=== PATIENT | male | born 1975 | race Caucasian/White ===

== ENCOUNTER 2023-01-21 10:56 | Outpatient (OUT) | payer BC, SELFPAY ==
[2023-01-21 12:04] LABS: Basophils Percent Auto 0.7 % (0.2-2.0); Eosinophils Absolute Auto 0.1 10^3/uL (0.0-0.7); Eosinophils Percent Auto 1.9 % (0.9-7.0); Hematocrit 45.2 % (42.0-54.0); Hemoglobin 14.8 g/dL (14.0-18.0); Immature Granulocytes Abs Auto 0.04 10^3/uL (0.00-0.03); Immature Granulocytes Pct Auto 0.7 % (0.0-0.5); Lymphocytes Absolute Auto 1.9 10^3/uL (1.2-3.8); Lymphocytes Percent Auto 33.8 % (20.5-60.0); Mean Corpuscular HGB Conc 32.7 g/dL (29.9-35.2); Mean Corpuscular Hemoglobin 28.4 pg (25.9-34.0); Mean Corpuscular Volume 86.6 fL (80.0-94.0); Mean Platelet Volume 9.7 fL (9.5-13.5); Monocytes Absolute Auto 0.6 10^3/uL (0.3-0.8); Monocytes Percent Auto 9.9 % (1.7-12.0); Platelet Count 296 10^3/uL (150-450); Red Blood Count 5.22 10^6/uL (4.70-6.10); Red Cell Distribution Width 13.6 % (11.0-15.0); White Blood Count 5.7 10^3/uL (4.0-11.0)
[2023-01-21 12:54] LABS: Alanine Aminotransferase 47 U/L (16-63); Albumin Level 3.8 g/dL (3.4-5.0); Alkaline Phosphatase 63 U/L (46-116); Anion Gap 10.1; Aspartate Amino Transferase 31 U/L (15-37); BUN Creatinine Ratio 10.3; Bilirubin Total 0.7 mg/dL (0.2-1.0); Calcium 8.7 mg/dL (8.5-10.1); Carbon Dioxide 27.9 mmol/L (21.0-32.0); Chloride 102 mmol/L (98-107); Cholesterol 217 mg/dL (<=200); Estimated GFR (African America >60 (>=60); Estimated GFR (Non-African Ame >60 (>=60); Free T3 2.46 pg/mL (2.18-3.98); Globulin 3.8 g/dL; Glucose 94 mg/dL (74-106); HDL Cholesterol 54 mg/dL (40-60); Sodium 136 mmol/L (136-145); Thyroid Stimulating Hormone 1.754 uIU/mL (0.358-3.740); Total Protein 7.6 g/dL (6.4-8.2); Triglycerides 48 mg/dL (<=150); VLDL CHOLESTEROL 9.6 mg/dL
[2023-01-21 12:57] LABS: Estimated Average Glucose 100 mg/dL; Glycohemoglobin A1C 5.1 % (4.5-6.2)
[2023-01-21 13:06] LABS: Prostate Specific Antigen Scrn 0.82 ng/mL (<=4.00)
== END 2023-01-21 10:57 | disposition home or self-care (01) ==
LOC: LAB 11:05
PROVIDERS: PCP Nurse Practitioner Family; Visit Provider Nurse Practitioner Family
DX: Z00.00 Encounter for general adult medical examination without abnormal findings (principal); Z12.5 Encounter for screening for malignant neoplasm of prostate
CPT/HCPCS: 36415; 80053; 80061; 83036; 83525; 84436; 84443; 84481; 85025; G0103

== ENCOUNTER 2023-01-28 13:43 | Outpatient (OUT) | payer BC, SELFPAY ==
--- NOTE | 2023-01-28 13:54 | US_ITS ---
[place] [id number] Patient Name: JAYLON ORTEGA MRN: [id number] date: 1975 Sex: M Assigned Patient Location: US Current Patient Location: Accession/Order Number: [id number] Exam Date: 01/28/2023 14:00 Report Date: 01/31/2023 06:47 At the request of: WARREN OMER Procedure: US venous doppler LE RT EXAMINATION: US venous doppler LE RT HISTORY: Pain In Right Lower Extremity M79.661 COMPARISON: No relevant comparison available. FINDINGS: REGION: Right lower extremity THROMBI: None. COMPRESSIBILITY: Normal compressibility. FLOW: Normal waveform and antegrade flow between 5 and 20 cm/s. OTHER: None. US/US venous doppler LE RT IMPRESSION: 1. No deep vein thrombus within right lower extremity. Electronically authenticated by: HECTOR BELLAMY Date: 01/31/2023 06:47
== END 2023-01-28 13:44 | disposition home or self-care (01) ==
PROVIDERS: PCP Nurse Practitioner Family; Visit Provider Nurse Practitioner Family
DX: M79.661 Pain in right lower leg (principal); M79.89 Other specified soft tissue disorders
CPT/HCPCS: 93971

== ENCOUNTER 2025-02-13 11:03 | Outpatient (OUT) | payer BC, SELFPAY ==
--- OUTSIDE RECORDS SUMMARY | 2025-02-13 11:15 | XMS_ITS | Clinical Summary ---
Author Organization [facility] Address [address] [place] [address] Care Team Providers Care Slab Worker Name Role Phone Jatin Smallwood MD Primary Care Provider [phone] Social History Tobacco UseTypesPacks/DayYears UsedDateSmoking Tobacco: Never AssessedSex and Gender InformationValueDate RecordedSex Assigned at BirthNot on fileLegal Sex Male06/02/2022 7:28 PM EDTGender IdentityNot on fileSexual OrientationNot on file Last Filed Vital Signs Vital SignReadingTime TakenCommentsBlood Uqcqsutf098/9403/08/2019 12:00 PM EST Pulse--Temperature--Respiratory Rate--Oxygen Saturation--Inhaled Oxygen Concentration--Yvbnzm179 kg (268 lb)03/08/2019 12:00 PM JLEVjtfny848.1 cm (5' 7.75 )03/08/2019 12:00 PM ESTBody Mass Index41.0503/08/2019 12:00 PM EST Plan of Treatment Health MaintenanceDue DateLast DoneCommentsCT Vtdifcyxcder96/31/1974Colonoscopy 1973Colorectal Cancer Wxdqkyimq53/31/1974FIT-DNA1973FIT1973 FOBT1973 5234Gkzalcazarkba84/31/1974COVID-19 Vaccine ( season) 2024Influenza Vaccine (#1)2024Pneumococcal Vaccine: Pediatrics (0 to 5 Years) and At-Risk Patients (6 to 64 Years)Aged OutNo longer eligible based on patient's age to complete this topic Insurance Care Teams Team MemberRelationshipSpecialtyStart DateEnd Date Jatin Smallwood MD [address] [address] PCP - GeneralFamily Medicine07/27/22
--- OUTSIDE RECORDS SUMMARY | 2025-02-13 11:15 | XMS_ITS | Clinical Summary ---
Author Organization [facility] Address [address] [place] [id number] Care Team Providers Care Marine Consultant Name Role Phone Deana Lara MD Primary Care Provider Allergies No known active allergies Medications MedicationSigDispense QuantityRefillsLast FilledStart DateEnd DateStatus Omeprazole 40 mg capsule Take 40 mg by mouth once daily.Active lisinopril (ZESTRIL, PRINIVIL) 40 mg tablet Take 40 mg by mouth once daily.Active hydroCHLOROthiazide (HYDRODIURIL, ESIDRIX) 25 mg tablet Take 25 mg by mouth once daily.Active Family History Medical HistoryRelationCommentsIschemic Heart DiseaseFatherIschemic Heart DiseasePaternal GrandfatherHypertensionSisterRelationStatusCommentsFather Paternal GrandfatherSister Social History Tobacco UseTypesPacks/DayYears UsedDateSmoking Tobacco: NeverAlcohol UseStandard Drinks/WeekCommentsYes7 (1 standard drink = 0.6 oz pure alcohol)Sex and Gender InformationValueDate RecordedSex Assigned at BirthNot on fileLegal SexMale 10/17/2015 11:56 AM EDTGender IdentityNot on fileSexual OrientationNot on file Last Filed Vital Signs Vital SignReadingTime TakenCommentsBlood Tazhchwq398/8710 1:12 PM EDT Wkkpj758312/22/2015 1:12 PM ZZSDupoqvmjgtj54.8 ??C (98.2 ??F)12/15/2015 12:29 PM EDTRespiratory Rate--Oxygen Saturation--Inhaled Oxygen Concentration--Weight 118.4 kg (261 lb)12/22/2015 1:12 PM UVEUywdnx692.2 cm (5' 7 )12/22/2015 1:12 PM EDTBody Mass Index40.8812/22/2015 1:12 PM EDT Plan of Treatment Health MaintenanceDue DateLast DoneCommentsAnxiety Fkhaibxfd97/31/1992Depression Pjshfzfmo06/31/1992HIV Vwwqfcqex50/31/1992Hepatitis C Oyppkzmpr78/31/1992 DTaP,Tdap,Td Vaccine (1 - Tdap)1992Hepatitis B Vaccine (1 of 3 - 19+ 3- dose series)1992CT Dcfmipvazooq77/31/2019Cologuard (FIT-DNA)2018 Rumclyjptpn83/31/2019Colorectal Cancer Imqezrgln42/31/2019Fecal Occult Blood 10/18/20180758Lcfvxhwoztfni03/31/2019Diabetes Uumvuyckg89Lipid Dlnizsgje17Pneumococcal Vaccine: 50+ (1 of 1 - PCV)10/19/2023 Shingrix Vaccine (1 of 2)4Covid-19 Vaccine (1 - season) 2024Influenza Vaccine (#1)2024 Procedures Procedure NamePriorityDate/TimeAssociated DiagnosisCommentsCOMPREHENSIVE METABOLIC AMZKXPdjiqug16/05/2016 9:47 AM EDT Elevated blood pressure (not hypertension) LIPID PANEL, CSPYJQQJjxunir25/05/2016 9:47 AM EDT Elevated blood pressure (not hypertension) from Last 3 Months or Most Recently Relevant to Health Maintenance Results * (ABNORMAL) LIPID PANEL BASIC (12/24/2015 9:47 AM EDT)ComponentValueRef Range Test MethodAnalysis TimePerformed AtPathologist YnvcernpiRfejhfvmnpit3352 - 149 mg/dL12/24/2015 4:07 PM [facility]ATORYCholesterol, Vxgai396(H)100 - 199 mg/dL12/24/2015 4:07 PM [facility]TCLEVEL[facility] LABORATORYHDL Ldljnftrutd87>45 mg/dL12/24/2015 4:07 PM EDTC[facility] LABORATORYVLDL Fxfuuzrslhi047 - 40 mg/dL12/24/2015 4:07 PM [facility]TC[facility] LABORATORYLDL Cholesterol, Zmrtpwymup548(H)60 - 129 mg/dL 12/24/2015 4:07 PM [facility] LABORATORYFasting Exfd38woe 12/24/2015 9:42 AM [facility] TC:HDL Ratio4.301.00 - 5.001 4:07 PM [facility] LABORATORYLDL:HDL Ratio3.080.50 - 3.5512/24/2015 4:07 PM [facility] LAB[facility]ATORYNon HDL Llmnmsrursd342(H)90 - 159 mg/dL12/24/2015 4:07 PM EDT [facility]ATORYSpecimen (Source)Anatomical Location / LateralityCollection Method / VolumeCollection TimeReceived TimeBlood specimen (specimen)BLOOD SPECIMEN / Dlzdnww0312/24/2015 9:47 AM EDT1 9:49 AM EDT Narrative Authorizing ProviderResult TypeResult StatusGeorge Jesus Alberto PIERRELABORATORYFinal ResultPerforming OrganizationAddressCity/State/ZIP CodePhone Number [facility] [address] [place] [address] [address] * (ABNORMAL) COMP METABOLIC PANEL (12/24/2015 9:47 AM EDT)ComponentValueRef RangeTest MethodAnalysis TimePerformed AtPathologist SignatureProtein, Total 7.16.3 - 8.0 g/dL12/24/2015 4:07 PM [facility] LABORATORYAlbumin 4.43.9 - 4.9 g/dL12/24/2015 4:07 PM [facility] LABORATORYCalcium 9.58.5 - 10.5 mg/dL12/24/2015 4:07 PM [facility] Bilirubin, Total0.80.2 - 1.3 mg/dL12/24/2015 4:07 PM [facility] LABORATORYAlkaline Azeovxaqxzc5223 - 108 U/L1 4:07 PM [facility] AOCGKAUJRZTFN3937 - 40 U/L1 4:07 PM [facility] FMDHLJYMFCXtbqqwy7776 - 99 mg/dL12/24/2015 4:07 PM [facility] LABORATORYBUN8(L)9 - 24 mg/dL12/24/2015 4:07 PM [facility] LABORATORYCreatinine0.860.73 - 1.22 mg/dL12/24/2015 4:07 PM [facility] QYVWIZWUOBTonuog031476 - 144 mmol/L1 4:07 PM [facility] LABORATORYPotassium4.13.7 - 5.1 mmol/L1 4:07 PM EDT [facility] XHMPZIUWVRSzgmslrz86762 - 105 mmol/L1 4:07 PM [facility] ZRTZUBYVYWOI64201 - 30 mmol/L1 4:07 PM EDT [facility] LABORATORYAnion Uzl566 - 18 mmol/L1 4:07 PM EDT [facility] ZQMDBFKCZTJRG3175 - 54 U/L1 4:07 PM EDT [facility] LABORATORYeGFR->6012/24/2015 4:07 PM EDT [facility] LABORATORYeGFR-All Other Races>60.12/24/2015 4:07 PM EDT [facility] LABORATORYComment: eGFR (Estimated GFR) Units of measure: mL/min/1.73 meters squared eGFR is derived from the reexpressed MDRD Study equation using the following parameters: serum creatinine, age, gender and race. The creatinine assay has been calibrated to be traceable to IDMS. An eGFR <60 mL/min/1.73m2 for >3 months is consistent with chronic kidney disease. Refer to KDOQI guidelines for clinical interpretation. In patients with unstable renal function, e.g. those with acute kidney injury, the eGFR may not accurately reflect actual GFR. Specimen (Source)Anatomical Location / LateralityCollection Method / Volume Collection TimeReceived TimeBlood specimen (specimen)BLOOD SPECIMEN / Unknown 12/24/2015 9:47 AM EDT1 9:49 AM EDT Narrative Authorizing ProviderResult TypeResult StatusGeorge Jesus Alberto PIERRELABORATORYFinal ResultPerforming OrganizationAddressCity/State/ZIP CodePhone Number [facility] [address] [place] [address] from Last 3 Months or Most Recently Relevant to Health Maintenance Insurance Care Teams Team MemberRelationshipSpecialtyStart DateEnd Date Deana Lara MD [address] [place] [address] PCP - GeneralFamily Piatclga55/3/16
--- OUTSIDE RECORDS SUMMARY | 2025-02-13 11:20 | XMS_ITS | CCD ---
Author Organization [place] [facility] Care Team Providers Care Senior Staff Specialized Employment Name Role Phone WARREN SENA Admitting Unavailable WARREN SENA Attending Unavailable WARREN SENA Primary Care Unavailable JAIDA, WARREN Admitting Unavailable WARREN SENA Attending Unavailable WARREN SENA Primary Care Unavailable JAIDA, WARREN Admitting Unavailable JAIDA, WARREN Attending Unavailable WARREN SENA Consulting Unavailable Results Test NameValueInterpretationReference RangeFacilityINSULINon [id number] 20.8 uIU/mLNormal2.6-24.9The [facility] CenterComment on above:Performed By: #### INSULIN #### [facility] [address] [place] [address] Dr. Arlet Cadet AUTO DIFFon [id number] #0.0 103/ulNormal0.0-0.1Good Samaritan HospitalComment on above:Performed By: #### CBC #### [facility] [address] [place] [address] Dr. Arlet Beckettsophils/100 WBC (Bld)0.6 %Normal0.2-2.0[facility] Comment on above:Performed By: #### CBC #### [facility] [address] [place] [address] Dr. Arlet Alanis #0.1 103/ulNormal0.0-0.7The [facility] CenterComment on above: Performed By: #### CBC #### [facility] [address] [place] [address] Dr. Arlet Howardosinophils/100 WBC (Bld)1.6 %Normal0.9-7.0[facility] Comment on above:Performed By: #### CBC #### [facility] [address] [place] [address] Dr. Yilan ChangErythrocyte distribution width (RBC) [Ratio]13.7 %Oapuww71.0-15.0 The [facility] CenterComment on above:Performed By: #### CBC #### [facility] [address] [place] [address] Dr. Arlet SpiveyHematocrit (Bld) [Volume fraction]45.1 %Eoexgj64.0-54.0The [facility] CenterComment on above:Performed By: #### CBC #### [facility] [address] [place] [address] Dr. Arlet SpiveyHemoglobin (Bld) [Mass/Vol]14.8 g/mWMzfhky81.0-18.0The [facility] CenterComment on above:Performed By: #### CBC #### [facility] [address] [place] [address] Dr. Arlet Lu #0.05 10e3/ulCritically high0.00-0.03The [facility] Comment on above:Performed By: #### CBC #### [facility] [address] [place] [address] Dr. Arlet SpiveyIG %0.7 %Critically high0.0-0.5The [facility] CenterComment on above:Performed By: #### CBC #### [facility] [address] [place] [address] Dr. Arlet AguirreH #2.0 103/ulNormal1.2-3.8The [facility] CenterComment on above:Performed By: #### CBC #### [facility] [address] [place] [address] Dr. Arlet Vidalmphocytes/100 WBC (Bld)29.4 %Zznjnd52.5-60.0The [facility] CenterComment on above:Performed By: #### CBC #### [facility] [address] [place] [address] Dr. Arlet AalnizUAL DIFF REQNONormalThe [facility] County Medical CenterComment on above: Performed By: #### CBC #### [facility] [address] [place] [address] Dr. Arlet Serrano (RBC) [Entitic mass]27.9 udEafeor81.9-34.0The [facility] CenterComment on above:Performed By: #### CBC #### [facility] [address] [place] [address] Dr. Arlet Serrano (RBC) [Mass/Vol]32.8 g/pXDuvcas62.9-35.2The [facility] CenterComment on above:Performed By: #### CBC #### [facility] [address] [place] [address] Dr. Arlet Serrano (RBC) [Entitic vol]84.9 vKMhtcsu07.0-94.0The [facility] CenterComment on above:Performed By: #### CBC #### [facility] [address] [place] [address] Dr. Arlet Haney #0.7 103/ulNormal0.3-0.8The [facility] CenterComment on above:Performed By: #### CBC #### [facility] [address] [place] [address] Dr. Arlet Leiocytes/100 WBC (Bld)11.0 %Normal1.7-12.0The [facility] Comment on above:Performed By: #### CBC #### [facility] [address] [place] [address] Dr. Arlet Maldonado #3.8 103/ulNormal1.4-6.5The [facility] CenterComment on above:Performed By: #### CBC #### [facility] [address] [place] [address] Dr. Arlet Thomasutrophils/100 WBC (Bld)56.7 %Deaghz19.0-75.0The [facility] CenterComment on above:Performed By: #### CBC #### [facility] [address] [place] [address] Dr. Arlet Mustafalet mean volume (Bld) [Entitic vol]9.8 fLNormal9.5-13.5The [facility] CenterComment on above:Performed By: #### CBC #### [facility] [address] [address] [address] Arlet SpiveyPLT289 103/htQseobw653-246VelBrecksville VA / [facility] on above: Performed By: #### CBC #### [facility] [address] [address] [address] Arlet SpiveyRBC5.31 106/ulNormal4.70-6.10ThPremier Health [facility] on above:Performed By: #### CBC #### [facility] [address] [place] [address] Dr. Arlet SpiveyWBC6.7 103/ulNormal4.0-11.0[facility]aritan HospitalComment on above: Performed By: #### CBC #### [facility] [address] [place] [address] Dr. Arlet Issa THYROXINE INDEX T7on 71-93-2059MMQ8.65NormalThGreene Memorial HospitalComaspirus ontonagon hospital on above:Performed By: #### TSH, T7, LIPID, CMP, URIC #### [facility] [address] [place] [address] Dr. Arlet SpiveyT3U34.0 %Fdynnc16.5-40.5ThPremier Health [facility] on above: Performed By: #### TSH, T7, LIPID, CMP, URIC #### [facility] [address] [place] [address] Dr. Arlet SpiveyT4 [Mass/Vol]7.80 ug/dLNormal4.50-12.10ThGreene Memorial Hospital Comment on above:Performed By: #### TSH, T7, LIPID, CMP, URIC #### [facility] [address] [place] [address] Dr. Arlet SpiveyGLYCOHEMOGLOBIN A1Con 37-75-4528SKN RECOMMENDATIONSEE BELOWNormOhioHealth Dublin Methodist HospitalComaspirus ontonagon hospital on above:Result Comment: ADA RECOMMENDED LIMIT 4.0 - 6.0 ADA THERAPEUTIC TARGET < 7.0 ACTION SUGGESTED > 7.0Performed By: #### A1C #### [facility] [address] [place] [address] Dr. Yilan ChangGlucose [Mass/Vol]114 mg/dLUniversity Hospitals Samaritan Medical CenterComment on above:Performed By: #### A1C #### [facility] [address] [place] [address] Dr. Arlet SpiveyHbA1c (Bld) [Mass fraction]5.6 %Normal4.5-6.2[facility] Samaritan HospitalComment on above:Performed By: #### A1C #### [facility] [address] [place] [address] Dr. Arlet SpiveyLIPID PROFILEon [id number]-HDL RATIO NORMSEE [facility] Lorain HospitalComment on above:Result Comment: 3.3 - 4.4 LOW RISK 4.4 - 7.1 AVERAGE RISK 7.1 - 11.0 MODERATE RISK >11.0 HIGH RISKPerformed By: #### TSH, T7, LIPID, CMP, URIC #### [facility] [address] [place] [address] Dr. Arlet Monsalveesterol [Mass/Vol]199 mg/dLNormal<=200The [facility] Comment on above:Performed By: #### TSH, T7, LIPID, CMP, URIC #### [facility] [address] [place] [address] Dr. Arlet Monsalveesterol in HDL [Mass/Vol]47 mg/jJQcckvx50-96TdlGood Samaritan HospitalComment on above:Performed By: #### TSH, T7, LIPID, CMP, URIC #### [facility] [address] [place] [address] Dr. Arlet Monsalveesterol in LDL [Mass/Vol]141.2 mg/dLUniversity Hospitals Samaritan Medical CenterComment on above:Performed By: #### TSH, T7, LIPID, CMP, URIC #### [facility] [address] [place] [address] Dr. Arlet Castro.total/Cholesterol in HDL [Mass ratio]4.2 {ratio} NormalGood Samaritan HospitalComment on above:Performed By: #### TSH, T7, LIPID, CMP, URIC #### [facility] [address] [address] [address] Arlet Lopez NORMAL> or = 60 mg/dl - LOW CARDIOVASCULAR RISK <40 mg/dl - HIGH CARDIOVASCULAR RISKUniversity Hospitals Samaritan Medical CenterComment on above:Performed By: #### TSH, T7, LIPID, CMP, URIC #### [facility] [address] [address] [address] Arlet SpiveyLDL CALC NORMALSEE BELOWUniversity Hospitals Samaritan Medical CenterComment on above:Result Comment: <100 mg/dl OPTIMAL 100 - 129 mg/dl NEAR OR ABOVE OPTIMAL 130 - 159 mg/dl BORDERLINE HIGH 160 - 189 mg/dl HIGH >190 mg/dl VERY HIGH Performed By: #### TSH, T7, LIPID, CMP, URIC #### [facility] [address] [place] [address] Dr. Arlet SpiveyTriglyceride [Mass/Vol]54 mg/dLNormal<=150The [facility] Comment on above:Performed By: #### TSH, T7, LIPID, CMP, URIC #### [facility] [address] [place] [address] Dr. Arlet SpiveyVLDL CALC10.8 mg/dLNoBellevue HospitalComment on above: Performed By: #### TSH, T7, LIPID, CMP, URIC #### [facility] [address] [place] [address] Dr. Arlet SpiveyPRONancy 14(COMP METB)on 97-04-9210Zxdxijg [Mass/Vol]3.7 g/dLNormal 3.4-5.0The [facility] CenterComment on above:Performed By: #### TSH, T7, LIPID, CMP, URIC #### [facility] [address] [place] [address] Dr. Arlet SpiveyAlbumin/Globulin [Mass ratio]1.1 {ratio}NormalThe [facility] Medical CenterComaspirus ontonagon hospital on above:Performed By: #### TSH, T7, LIPID, CMP, URIC #### [facility] [address] [place] [address] Dr. Arlet Miller [Catalytic activity/Vol]71 U/NHyrpzd83-642Xzf [facility]burn HospitalComment on above:Performed By: #### TSH, T7, LIPID, CMP, URIC #### [facility] [address] [address] [address] Arlet Durbin [Catalytic activity/Vol]41 U/XDkjblb04-77Jyi [facility] CenterComment on above:Performed By: #### TSH, T7, LIPID, CMP, URIC #### [facility] [address] [place] [address] Dr. Arlet Rodriguezon gap [Moles/Vol]10.8 mmol/LNormalThe [facility] Comment on above:Performed By: #### TSH, T7, LIPID, CMP, URIC #### [facility] [address] [place] [address] Dr. Arlet Suarez [Catalytic activity/Vol]23 U/AZiwokv41-12DypGood Samaritan HospitalComment on above:Performed By: #### TSH, T7, LIPID, CMP, URIC #### [facility] [address] [place] [address] Dr. Arlet SpiveyBilirubin [Mass/Vol]0.8 mg/dLNormal0.2-1.0[facility] Comment on above:Performed By: #### TSH, T7, LIPID, CMP, URIC #### [facility] [address] [place] [address] Dr. Arlet SpiveyCalcium [Mass/Vol]8.4 mg/dLCritically low8.5-10.1Good Samaritan HospitalComment on above:Performed By: #### TSH, T7, LIPID, CMP, URIC #### [facility] [address] [place] [address] Dr. Arlet SpiveyChloride [Moles/Vol]105 mmol/USsozwf96-070MftGood Samaritan Hospital Comment on above:Performed By: #### TSH, T7, LIPID, CMP, URIC #### [facility] [address] [place] [address] Dr. Arlet SpiveyCO2 [Moles/Vol]25.2 mmol/JGtiwlj28.0-32.0The [facility] Comment on above:Performed By: #### TSH, T7, LIPID, CMP, URIC #### [facility] [address] [address] [address] Arlet SpiveyCreatinine [Mass/Vol]0.89 mg/dLNormal0.70-1.30The [facility] Anthony's Hospitalment on above:Performed By: #### TSH, T7, LIPID, CMP, URIC #### [facility] [address] [place] [address] Dr. Arlet HowardGFR-AF MALDIVIAN>60Normal>=60The [facility] Medical CenterComment on above:Performed By: #### TSH, T7, LIPID, CMP, URIC #### [facility] [address] [place] [address] Dr. Arlet HowardGFR-NON AF MALDIVIAN>60Normal>=60The [facility] CenterComment on above:Performed By: #### TSH, T7, LIPID, CMP, URIC #### [facility] [address] [place] [address] Dr. Arlet SpiveyGlobulin (S) [Mass/Vol]3.5 g/dLNormalThe [facility] CenterComment on above:Performed By: #### TSH, T7, LIPID, CMP, URIC #### [facility] [address] [place] [address] Dr. Arlet SpiveyGlucose [Mass/Vol]101 mg/mRHjobkf14-609FzaGood Samaritan Hospital Comment on above:Performed By: #### TSH, T7, LIPID, CMP, URIC #### [facility] [address] [place] [address] Dr. Arlet SpiveyPotassium [Moles/Vol]4.0 mmol/LNormal3.5-5.1[facility] Comment on above:Performed By: #### TSH, T7, LIPID, CMP, URIC #### [facility] [address] [place] [address] Dr. Arlet SpiveyProtein [Mass/Vol]7.2 g/dLNormal6.1-8.2[facility] Comment on above:Performed By: #### TSH, T7, LIPID, CMP, URIC #### [facility] [address] [place] [address] Dr. Arlet Perezum [Moles/Vol]137 mmol/EJlbnfo726-904Tpv [facility] Comment on above:Performed By: #### TSH, T7, LIPID, CMP, URIC #### [facility] [address] [address] [address] Arlet SpiveyUrea nitrogen [Mass/Vol]9.0 mg/dLNormal7.0-18.0The [facility] CenterComment on above:Performed By: #### TSH, T7, LIPID, CMP, URIC #### [facility] [address] [address] [address] Arlet SpiveyUrea nitrogen/Creatinine [Mass ratio]10.1 mg/mgNoCincinnati Children's Hospital Medical Centere [facility] CenterComment on above:Performed By: #### TSH, T7, LIPID, CMP, URIC #### [facility] [address] [place] [address] Dr. Arlet Vazquez 58-04-2287VGE6.861 uIU/mLNormal0.470-4.680The [facility] CenterComment on above:Performed By: #### TSH, T7, LIPID, CMP, URIC #### [facility] [address] [address] [address] [facility]let [facility]d [facility] BELOWUniversity Hospitals Samaritan Medical CenterComment on above: Result Comment: <0.34 UIU/ml HYPERTHYROID 0.34-5.60 UIU/ml EUTHYROID >5.60 UIU/ml HYPOTHYROIDPerformed By: #### TSH, T7, LIPID, CMP, URIC #### [facility] [address] [place] [address] Dr. Arlet SpiveyURIC ACID SERUMon 37-29-8465Vhcyj [Mass/Vol]6.5 mg/dLNormal 3.5-8.5The [facility] CenterComment on above:Performed By: #### TSH, T7, LIPID, CMP, URIC #### [facility] [address] [place] [address] Dr. Arlet Spivey Encounters Encounter DateEncounter TypeCare ProviderFacilityStart: 91-46-6010Axfpexqhk for general adult medical examination without abnormal findingsWARREN SENASycamore Medical Centertart: 07-23-2021 End: 65-46-9092ceqzpskwgaIHMMGU ALLENFacility:P1Etvkp: 07-23-2021 End: 46-36-8192Wfcsiekhn for general adult medical examination without abnormal findingsNorth Texas Medical Centercility:A8Saota: 09-75-2091zsuqpnqbefAEQQZX ALLEN Facility:E0Jdyrh: 58-47-7454vdmeftshnnXVFVWC ALLENFacility: Payers DatePayer CategoryPayerPolicy [id number] Summary Purpose Family History No Family History Records Found Advance Directives No Advanced Directives Records Found Additional Source Comments (unrecognized sect ion and content) No Status Records Found INFORMATION SOURCE (unrecogn ized section and content) DATE CREATED AUTHOR 07/24/2021 [facility] FOR RECORDS PERTAINING TO PATIENTS WHO ARE OR HAVE BEEN ENROLLED IN A CHEMICAL DEPENDENCY/SUBSTANCEABUSE PROGRAM, SOME INFORMATION MAY BE OMITTED. This clinical summary was aggregated from multiple sources. Caution should be exercised in using it in the provision of clinical care. This summary normalizes information from multiple sources, and as a consequence, information in this document may materially change the coding, format and clinical context of patient data. In addition, data may be omitted in some cases. CLINICAL DECISIONS SHOULD BE BASED ON THE PRIMARY CLINICAL RECORDS. [employer] [facility]. provides no warranty or guarantee of the accuracy or completeness of information in this document.
[2025-02-13 11:40] LABS: Hematocrit 47.0 % (42.0-54.0); Hemoglobin 15.4 g/dL (14.0-18.0); Immature Granulocytes Abs Auto 0.04 10^3/uL (0.00-0.03); Immature Granulocytes Pct Auto 0.7 % (0.0-0.5); Lymphocytes Absolute Auto 1.8 10^3/uL (1.2-3.8); Mean Corpuscular HGB Conc 32.8 g/dL (29.9-35.2); Mean Corpuscular Hemoglobin 27.8 pg (25.9-34.0); Mean Corpuscular Volume 85.0 fL (80.0-94.0); Platelet Count 297 10^3/uL (150-450); Red Blood Count 5.53 10^6/uL (4.70-6.10); White Blood Count 5.7 10^3/uL (4.0-11.0)
[2025-02-13 12:20] LABS: Alanine Aminotransferase 48 U/L (16-63); Albumin Globulin Ratio 1.0; Albumin Level 3.7 g/dL (3.4-5.0); Alkaline Phosphatase 79 U/L (46-116); Anion Gap 10.3; Aspartate Amino Transferase 27 U/L (15-37); Blood Urea Nitrogen 9.0 mg/dL (7.0-18.0); Calcium 9.0 mg/dL (8.5-10.1); Carbon Dioxide 31.0 mmol/L (21.0-32.0); Chloride 103 mmol/L (98-107); Cholesterol 203 mg/dL (<=200); Estimated GFR (African America >60 (>=60 mL/min/1.73m^2); Estimated GFR (Non-African Ame >60 (>=60 mL/min/1.73m^2); Free T3 2.75 pg/mL (2.18-3.98); Globulin 3.7 g/dL; Glucose 101 mg/dL (74-106); HDL Cholesterol 50 mg/dL (40-60); Potassium 4.3 mmol/L (3.5-5.1); Sodium 140 mmol/L (136-145); Thyroid Stimulating Hormone 2.513 uIU/mL (0.358-3.740); Total Protein 7.4 g/dL (6.4-8.2); Triglycerides 65 mg/dL (<=150); Uric Acid 5.5 mg/dL (3.5-7.2); VLDL CHOLESTEROL 13.0 mg/dL
== END 2025-02-13 11:04 | disposition home or self-care (01) ==
PROVIDERS: PCP Nurse Practitioner Family; Visit Provider Nurse Practitioner Family
DX: Z00.00 Encounter for general adult medical examination without abnormal findings (principal); Z12.5 Encounter for screening for malignant neoplasm of prostate
CPT/HCPCS: 36415; 80053; 80061; 83036; 83525; 84436; 84443; 84481; 84550; 85025; G0103